=== PATIENT | male | born 2000 | race Caucasian/White ===

== ENCOUNTER 2023-05-24 12:45 | Emergency (ER) | payer OTHER ==
--- NOTE | 2023-05-24 13:15 | ED ---
Skin/Abscess/FB HPI - General Chief complaint: Skin/Abscess/Foreign Body Stated complaint: Right side neck pain-sent from dentist Time Seen by Provider: 05/24/23 12:52 Source: patient, RN notes reviewed Mode of arrival: ambulatory Limitations: no limitations - History of Present Illness Initial comments: This is a 22-year-old male who presents to the emergency department for right- sided neck swelling. Patient states that 3 days ago he was developing pain and swelling to the right side of his neck. He had dental pain as well, which he thought might be causing it due to a cracked molar. He followed up with his dentist today, however they were concerned about the swelling being in the neck and did not want to do any intervention until he was evaluated in the emergency department, as they were concerned about problems with his airway. The dentist told the patient that if they were to intervene with the swelling already there, it could cause airway compromise, and he needed the swelling to go down first. Denies any shortness of breath, but states that it is painful to speak and swallow. He is also having difficulty fully opening the mouth due to the pain. Denies any fevers/chills, coughing, or congestion. Also denies any history of similar symptoms in the past. His dentist did send in a prescription for Augmentin, Ibuprofen, and an oral rinse. Follow up appointment with his dentist is scheduled for 05/30/23. - Related Data Previous Rx's Medication Instructions Recorded HYDROcodone/APAP 5-325MG [[place] 1 tab PO Q6HR PRN 3 Days #12 tab 05/24/23 5-325] Allergies Allergy/AdvReac Type Severity Reaction Status Date / Time No Known Allergies Allergy Verified 05/24/23 12:51 Review of Systems ROS Statement: Those systems with pertinent positive or pertinent negative responses have been documented in the HPI. ROS Other: All systems not noted in ROS Statement are negative. Past Medical History Past Medical History: No Reported History History of Any Multi-Drug Resistant Organisms: None Reported Past Surgical History: Orthopedic Surgery Past Psychological History: No Psychological Hx Reported Smoking Status: Never smoker Past Alcohol Use History: Occasional Past Drug Use History: None Reported General Exam Limitations: no limitations General appearance: alert, in no apparent distress Head exam: Present: atraumatic, normocephalic, normal inspection ENT exam: Present: TM's normal bilaterally, normal external ear exam, other (No swelling to the floor of the mouth or elevation of the tongue. Cracked molar in the right lower jaw without significant dental caries.) Neck exam: Present: other (Tenderness and swelling to the right side of the neck consistent with lymphadenopathy) Respiratory exam: Present: normal lung sounds bilaterally. Absent: respiratory distress, wheezes, rales, rhonchi, stridor Cardiovascular Exam: Present: regular rate, normal rhythm, normal heart sounds. Absent: systolic murmur, diastolic murmur, rubs, gallop, clicks Neurological exam: Present: alert, oriented X3, CN II-XII intact Psychiatric exam: Present: normal affect, normal mood Course Vital Signs 05/24/23 05/24/23 05/24/23 12:48 16:00 17:26 Temperature 99.0 F 99.5 F 98.3 F Pulse Rate 77 69 78 Respiratory 16 18 16 Rate Blood Pressure 143/104 146/75 142/84 O2 Sat by Pulse 100 97 97 Oximetry Medical Decision Making - Medical Decision Making This is a 22-year-old male who presents to the emergency department for pain and swelling to the neck. Was pt. sent in by a medical professional or institution? @ -His dentist Did you speak to anyone other than the patient for history? @ -No Did you review nursing and triage notes? @ -Yes, and I agree, it is accurate with regards to the patient's symptoms. Were old charts reviewed? @ -No Differential Diagnosis? @ -Differential Neck Swelling: Allergic reaction, lymphadenopathy, abscess, cellulitis, tumor, this is not meant to be an all-inclusive list. EKG interpreted by me (3pts min.)? @ -Not obtained X-rays interpreted by me (1pt min.)? @ -Not obtained CT interpreted by me (1pt min.)? @ -Not obtained U/S interpreted by me (1pt. min.)? @ -Ultrasound of the soft tissue neck obtained. My interpretation identifies lymphadenopathy. What testing was considered but not performed? (CT, X-rays, U/S, labs)? Why? @ -None What meds were considered but not given? Why? @ -None Did you discuss the management of the patient with other professionals? @ -No Did you reconcile home meds? @ -No Was smoking cessation discussed for >3mins.? @ -No Was critical care preformed (if so, how long)? @ -No Were there social determinants of health that impacted care today? How? (Homelessness, low income, unemployed, alcoholism, drug addiction, transportation, low edu. Level, literacy, decrease access to med. care, [facility], rehab)? @ -No Was there de-escalation of care discussed even if they declined? (Discuss DNR or withdrawal of care, Hospice)? @ -No What co-morbidities impacted this encounter? (DM, HTN, Smoking, COPD, CAD, Cancer, CVA, Hep., AIDS, mental health diagnosis, sleep apnea, morbid obesity)? @ -None Was patient admitted / discharged? @ -Discharged. Lab work reveals an elevated CRP of 7.6 and was otherwise unremarkable. Lactic acid negative and there is no leukocytosis. Ultrasound of the neck obtained demonstrating clustered thickened and mildly enlarged lymph nodes, which is likely reactive. Patient has no elevation of the tongue or swelling to the floor of the mouth to suggest a Omar's angina. Symptoms likely related to dental infection causing reactive lymphadenopathy. Patient has pain with opening and closing mouth, but no shortness of breath or other evidence of airway compromise. His pain was well-controlled in the emergency department. Advise he take the ibuprofen and antibiotic as prescribed to help with the infection and reactive lymphadenopathy. Patient discharged home in stable condition and will follow-up with his dentist as scheduled. Undiagnosed new problem with uncertain prognosis? @ -None Drug Therapy requiring intensive monitoring for toxicity (Heparin, Nitro, Insulin, Cardizem)? @ -None Were any procedures done? @ -None Diagnosis/symptom? @ -Dental infection, lymphadenopathy Acute, or Chronic, or Acute on Chronic? @ -Acute Uncomplicated (without systemic symptoms) or Complicated (systemic symptoms)? @ -Uncomplicated Side effects of treatment? @ -None Exacerbation, Progression, or Severe Exacerbation] @ -Not applicable Poses a threat to life or bodily function? @ -No Return precautions reviewed in depth, the patient is instructed to return to the emergency department with any new, worsening, or concerning symptoms. Patient verbalized understanding. This case was discussed in detail with the attending ED physician, Dr. Mueller. Presentation, findings, and treatment plan discussed in detail as well. - Lab Data Result diagrams: 05/24/23 13:10 03/05/24 13:10 Lab Results 05/24/23 05/24/23 05/24/23 Range/Units 13:10 13:10 13:10 WBC 7.5 (3.8-10.6) k/uL RBC 4.92 (4.30-5.90) m/uL Hgb 15.7 (13.0-17.5) gm/dL Hct 45.6 (39.0-53.0) % MCV 92.6 (80.0-100.0) fL MCH 31.9 (25.0-35.0) pg MCHC 34.5 (31.0-37.0) g/dL RDW 12.0 (11.5-15.5) % Plt Count 171 (150-450) k/uL MPV 9.1 Neutrophils % 74 % Lymphocytes % 14 % Monocytes % 10 % Eosinophils % 1 % Basophils % 0 % Neutrophils # 5.6 (1.3-7.7) k/uL Lymphocytes # 1.0 (1.0-4.8) k/uL Monocytes # 0.7 (0-1.0) k/uL Eosinophils # 0.1 (0-0.7) k/uL Basophils # 0.0 (0-0.2) k/uL Sodium 139 (137-145) mmol/L Potassium 4.2 (3.5-5.1) mmol/L Chloride 106 (98-107) mmol/L Carbon Dioxide 21 L (22-30) mmol/L Anion Gap 12 mmol/L BUN 10 (9-20) mg/dL Creatinine 0.74 (0.66-1.25) mg/dL Est GFR (CKD-EPI)AfAm >90 (>60 ml/min/1.73 sqM) Est GFR (CKD-EPI)NonAf >90 (>60 ml/min/1.73 sqM) Glucose 88 (74-99) mg/dL Plasma Lactic Acid Billy 0.7 (0.7-2.0) mmol/L Calcium 9.6 (8.4-10.2) mg/dL Total Bilirubin 1.1 (0.2-1.3) mg/dL AST 35 (17-59) U/L ALT 28 (4-49) U/L Alkaline Phosphatase 91 (38-126) U/L C-Reactive Protein 7.6 H (<1.0) mg/dL Total Protein 7.8 (6.3-8.2) g/dL Albumin 5.0 (3.5-5.0) g/dL Amylase 47 (30-110) U/L Lipase 39 (23-300) U/L Influenza Type A (PCR) (Not Detectd) Influenza Type B (PCR) (Not Detectd) RSV (PCR) (Not Detectd) SARS-CoV-2 (PCR) (Not Detectd) Group A Strep (PCR) (Not Detectd) 05/24/23 05/24/23 Range/Units 13:25 13:25 WBC (3.8-10.6) k/uL RBC (4.30-5.90) m/uL Hgb (13.0-17.5) gm/dL Hct (39.0-53.0) % MCV (80.0-100.0) fL MCH (25.0-35.0) pg MCHC (31.0-37.0) g/dL RDW (11.5-15.5) % Plt Count (150-450) k/uL MPV Neutrophils % % Lymphocytes % % Monocytes % % Eosinophils % % Basophils % % Neutrophils # (1.3-7.7) k/uL Lymphocytes # (1.0-4.8) k/uL Monocytes # (0-1.0) k/uL Eosinophils # (0-0.7) k/uL Basophils # (0-0.2) k/uL Sodium (137-145) mmol/L Potassium (3.5-5.1) mmol/L Chloride (98-107) mmol/L Carbon Dioxide (22-30) mmol/L Anion Gap mmol/L BUN (9-20) mg/dL Creatinine (0.66-1.25) mg/dL Est GFR (CKD-EPI)AfAm (>60 ml/min/1.73 sqM) Est GFR (CKD-EPI)NonAf (>60 ml/min/1.73 sqM) Glucose (74-99) mg/dL Plasma Lactic Acid Billy (0.7-2.0) mmol/L Calcium (8.4-10.2) mg/dL Total Bilirubin (0.2-1.3) mg/dL AST (17-59) U/L ALT (4-49) U/L Alkaline Phosphatase (38-126) U/L C-Reactive Protein (<1.0) mg/dL Total Protein (6.3-8.2) g/dL Albumin (3.5-5.0) g/dL Amylase (30-110) U/L Lipase (23-300) U/L Influenza Type A (PCR) Not Detected (Not Detectd) Influenza Type B (PCR) Not Detected (Not Detectd) RSV (PCR) Not Detected (Not Detectd) SARS-CoV-2 (PCR) Not Detected (Not Detectd) Group A Strep (PCR) NOT DETECTED (Not Detectd) - Radiology Data Radiology results: report reviewed, image reviewed Disposition Clinical Impression: Dental infection, Lymphadenopathy Disposition: HOME SELF-CARE Instructions (If sedation given, give patient instructions): Dental Abscess (ED), Lymphadenopathy (ED) Additional Instructions: Return to the emergency department with any new, worsening, or concerning symptoms. Take the antibiotic as prescribed by your dentist. Alternate with ibuprofen and Tylenol, and try to continue taking the ibuprofen, even if it is not particularly painful, to help with the swelling and inflammation. Take the [place] sparingly when your pain is the most severe and be aware that it may make you drowsy. Follow-up with your dentist as scheduled. Prescriptions: HYDROcodone/APAP 5-325MG [[place] 5-325] 1 tab PO Q6HR PRN 3 Days #12 tab PRN Reason: Pain Is patient prescribed a controlled substance at d/c from ED?: Yes When asked, does pt state using other controlled substances?: No If prescribed controlled substance>3 days was MAPS reviewed?: Prescribed <3 Days Referrals: None,Stated [Primary Care Provider] - 1-2 days Time of Disposition: 16:46
[2023-05-24] MEDS: KETOROLAC 15 MG/ML 1 ML VIAL IVP STA ×2 (13:20→16:00)
[2023-05-24] MEDS: DEXAMETHASONE SOD PHOSPHATE 10 MG/ML 1 ML VIAL IVP STA (13:22)
[2023-05-24 13:37] LABS: Basophils % (A) 0 %; Eosinophils # (A) 0.1 k/uL (0-0.7); Eosinophils % (A) 1 %; HCT 45.6 % (39.0-53.0); HGB 15.7 gm/dL (13.0-17.5); Lymphocytes % (A) 14 %; MCH 31.9 pg (25.0-35.0); MCHC 34.5 g/dL (31.0-37.0); MCV 92.6 fL (80.0-100.0); Mean Platelet Volume 9.1; Monocytes # (A) 0.7 k/uL (0-1.0); Monocytes % (A) 10 %; Neutrophils # (A) 5.6 k/uL (1.3-7.7); Neutrophils % (A) 74 %; Platelet Count 171 k/uL (150-450); RBC 4.92 m/uL (4.30-5.90); WBC 7.5 k/uL (3.8-10.6)
[2023-05-24 13:49] LABS: ALT 28 U/L (4-49); AST 35 U/L (17-59); African American GFR (CKD) >90 (>60 ml/min/1.73 sqM); Alkaline Phosphatase 91 U/L (38-126); Amylase 47 U/L (30-110); Anion Gap 12 mmol/L; Blood Urea Nitrogen 10 mg/dL (9-20); C Reactive Protein 7.6 mg/dL (<1.0); Calcium 9.6 mg/dL (8.4-10.2); Carbon Dioxide 21 mmol/L (22-30); Chloride 106 mmol/L (98-107); Glucose 88 mg/dL (74-99); Lipase 39 U/L (23-300); Non-African American GFR(CKD) >90 (>60 ml/min/1.73 sqM); Potassium 4.2 mmol/L (3.5-5.1); Sodium 139 mmol/L (137-145); Total Bilirubin 1.1 mg/dL (0.2-1.3); Total Protein 7.8 g/dL (6.3-8.2)
--- NOTE | 2023-05-24 14:48 | US ---
EXAMINATION TYPE: US st tissue neck DATE OF EXAM: 05/24/2023 COMPARISON: NONE CLINICAL INDICATION: Male, 22 years old with history of Neck mass; Pt states pain and swelling to rig ht side of neck and submandibular area x 3 days TECHNIQUE: Scanning along the right neck and right submandibular region corresponding to the symptoma tic site. FINDINGS: [employer] notes: Chain of lymph nodes visualized right submandibular area where pt is having pain, largest 2 lymph n odes 1)= 1.5 x 0.8 x 0.7 cm with 0.5cm cortical thickness 2)= 1.6 x 0.7 x 0.8 cm with 0.3cm cortical thickness IMPRESSION: Clustered thickened and mildly enlarged lymph nodes at the site of patient's pain, likely reactive. L ymphadenitis is possible. Follow-up after treatment to ensure resolution. If a palpable abnormality p ersists or increases in size, the area can be rescanned.
[2023-05-24] MEDS: MORPHINE SULFATE 4 MG/ML SYRINGE IVP STA (16:04)
[2023-05-24] MEDS: ACETAMINOPHEN TAB 500 MG TAB PO STA (17:23)
[2023-05-24 17:41] VITALS: BP 142/84; PULSE 78; RESP 16; TEMP 98.3
== END 2023-05-24 17:26 | disposition home or self-care (01) ==
LOC: EC 12:45
DX: K04.7 Periapical abscess without sinus (principal); R59.1 Generalized enlarged lymph nodes; Z20.822 Contact with and (suspected) exposure to COVID-19
CPT/HCPCS: 36415; 87651; 80053; 82150; 83605; 83690; 85025; 86140; 87636; 76536; 99284; 96374; 96375 ×2; 96376; J2270; J1100; J1885

== ENCOUNTER 2023-05-26 08:45 | Emergency (ER) | payer OTHER ==
[2023-05-26 09:04] VITALS: RESP 18
[2023-05-26] MEDS: KETOROLAC 15 MG/ML 1 ML VIAL IVP STA (09:12)
--- NOTE | 2023-05-26 09:13 | ED ---
ENT HPI - General Chief complaint: ENT Stated complaint: R Facial Swelling, hx of Infection lymph node Time Seen by Provider: 05/26/23 08:48 Source: patient, RN notes reviewed Mode of arrival: ambulatory Limitations: no limitations - History of Present Illness Initial comments: This is a 22-year-old male who presents to the emergency department for right- sided face and neck swelling. Patient was evaluated here 2 days ago and diagnosed with reactive lymphadenopathy secondary to a dental infection. Lab work was unremarkable at that time. He has been on Augmentin and Ibuprofen without relief in symptoms. Believes that the pain and swelling are not getting any better. Denies any shortness of breath, but states that the pain does make it hard to swallow. Denies any fever/chills. He does note that his father has had similar problems in the past, and did not respond to Augmentin. - Related Data Home Medications Medication Instructions Recorded Confirmed Amoxic-Pot Clav 875-125Mg 1 tab PO BID 05/26/23 05/26/23 [Augmentin 875-125] Chlorhexidine Gluconate [Peridex] 15 ml PO BID 05/26/23 05/26/23 Ibuprofen [Motrin] 600 mg PO TID PRN 05/26/23 05/26/23 Previous Rx's Medication Instructions Recorded HYDROcodone/APAP 5-325MG [[place] 1 tab PO Q6HR PRN 3 Days #12 tab 05/24/23 5-325] Acet/Diph/Lido/Eiqd-Sbi-Hkl-Si 5 ml PO Q4-6H PRN #240 ml 05/26/23 [Tyl/Benadryl/Lido/Maalox] Moxifloxacin HCl [Avelox] 400 mg PO DAILY 10 Days #10 tab 05/26/23 Allergies Allergy/AdvReac Type Severity Reaction Status Date / Time No Known Allergies Allergy Verified 05/26/23 09:38 Review of Systems ROS Statement: Those systems with pertinent positive or pertinent negative responses have been documented in the HPI. ROS Other: All systems not noted in ROS Statement are negative. Past Medical History Past Medical History: No Reported History History of Any Multi-Drug Resistant Organisms: None Reported Past Surgical History: Orthopedic Surgery Past Psychological History: No Psychological Hx Reported Smoking Status: Never smoker Past Alcohol Use History: Occasional Past Drug Use History: None Reported General Exam Limitations: no limitations General appearance: alert, in no apparent distress ENT exam: Present: other (Swelling and tenderness to the right cheek. This does not cross the midline. No elevation of the tongue or swelling of the floor of the mouth.) Neck exam: Present: lymphadenopathy Respiratory exam: Present: normal lung sounds bilaterally. Absent: respiratory distress, wheezes, rales, rhonchi, stridor Cardiovascular Exam: Present: regular rate, normal rhythm, normal heart sounds. Absent: systolic murmur, diastolic murmur, rubs, gallop, clicks Neurological exam: Present: alert, oriented X3, CN II-XII intact Psychiatric exam: Present: normal affect, normal mood Course Vital Signs 05/26/23 05/26/23 05/26/23 08:46 12:00 14:04 Temperature 97.4 F L Pulse Rate 75 73 57 L Respiratory 18 18 18 Rate Blood Pressure 141/93 143/86 143/95 O2 Sat by Pulse 99 98 99 Oximetry 05/26/23 14:55 Temperature 97.6 F Pulse Rate 64 Respiratory 18 Rate Blood Pressure 140/76 O2 Sat by Pulse 98 Oximetry Medical Decision Making - Medical Decision Making This is a 22-year-old male who presents to the emergency department for right- sided face and neck swelling. Was pt. sent in by a medical professional or institution? @ -No Did you speak to anyone other than the patient for history? @ -No Did you review nursing and triage notes? @ -Yes, and I agree, it is accurate with regards to the patient's symptoms. Were old charts reviewed? @ -US of the head and neck from 05/24/23 demonstrating clustered thickened and mildly enlarged lymph nodes at the site of the patient's pain thought to be reactive. Lymphadenitis was also a possibility. Differential Diagnosis? @ -Differential Neck Pain/Swelling: Lymphadenopathy, abscess, cellulitis, this is not meant to be an all-inclusive list. EKG interpreted by me (3pts min.)? @ -Not obtained X-rays interpreted by me (1pt min.)? @ -Not obtained CT interpreted by me (1pt min.)? @ -CT scan of the soft tissue neck obtained. My interpretation identifies no evidence of abscess formation. U/S interpreted by me (1pt. min.)? @ -Not obtained What testing was considered but not performed? (CT, X-rays, U/S, labs)? Why? @ -None What meds were considered but not given? Why? @ -None Did you discuss the management of the patient with other professionals? @ -Dr. Parkinson, ENT, who advised that the swelling is outside of the airway and advised switching Augmentin to the Moxifloxacin and having him follow up with oral surgery. Did you reconcile home meds? @ -No Was smoking cessation discussed for >3mins.? @ -No Was critical care preformed (if so, how long)? @ -No Were there social determinants of health that impacted care today? How? (Homelessness, low income, unemployed, alcoholism, drug addiction, transportation, low edu. Level, literacy, decrease access to med. care, correction, rehab)? @ -No Was there de-escalation of care discussed even if they declined? (Discuss DNR or withdrawal of care, Hospice)? @ -No What co-morbidities impacted this encounter? (DM, HTN, Smoking, COPD, CAD, Cancer, CVA, Hep., AIDS, mental health diagnosis, sleep apnea, morbid obesity)? @ -None Was patient admitted / discharged? @ -Discharged. Lab work fairly unremarkable. There is no leukocytosis and CRP is decreased when compared with [address] scan of the soft tissue neck obtained. This demonstrates mild diffuse stranding along the right side of the neck of indeterminate significance. There is some mild thickening of the fascia along the right neck as well. No drainable fluid collection or abscess is identified. I spoke with the radiologist to clarify the location of the swelling. He believes that this may be along the platysma muscle, but it is not entirely clear. I then spoke with Dr. Parkinson, ENT. He advised that the swelling is outside of the airway and not concerning for airway compromise at this time. He recommended switching the Augmentin to moxifloxacin and having him follow-up with oral surgery. Prescription for moxifloxacin was provided. He was also given a prescription for magic mouthwash to help with the sore throat. Case management tried to get the patient an appointment with oral surgery, however due to his insurance, multiple offices would not accept the patient. We were able to get the patient an appointment for 05/29. He was given strict return parameters and otherwise discharged home in stable condition. Undiagnosed new problem with uncertain prognosis? @ -None Drug Therapy requiring intensive monitoring for toxicity (Heparin, Nitro, Insulin, Cardizem)? @ -None Were any procedures done? @ -None Diagnosis/symptom? @ -Dental infection Acute, or Chronic, or Acute on Chronic? @ -Acute Uncomplicated (without systemic symptoms) or Complicated (systemic symptoms)? @ -Uncomplicated Side effects of treatment? @ -None Exacerbation, Progression, or Severe Exacerbation] @ -Not applicable Poses a threat to life or bodily function? @ -Unlikely Return precautions reviewed in depth, the patient is instructed to return to the emergency department with any new, worsening, or concerning symptoms. Patient verbalized understanding. This case was discussed in detail with the attending ED physician, Dr. Grayson. Presentation, findings, and treatment plan discussed in detail as well. - Lab Data Result diagrams: 05/26/23 09:06 05/26/23 09:06 Lab Results 05/26/23 05/26/23 05/26/23 Range/Units 09:06 09:06 09:06 WBC 7.0 (3.8-10.6) k/uL RBC 4.66 (4.30-5.90) m/uL Hgb 14.8 (13.0-17.5) gm/dL Hct 43.4 (39.0-53.0) % MCV 93.2 (80.0-100.0) fL MCH 31.7 (25.0-35.0) pg MCHC 34.0 (31.0-37.0) g/dL RDW 12.2 (11.5-15.5) % Plt Count 163 (150-450) k/uL MPV 9.5 Neutrophils % 64 % Lymphocytes % 25 % Monocytes % 8 % Eosinophils % 1 % Basophils % 0 % Neutrophils # 4.5 (1.3-7.7) k/uL Lymphocytes # 1.7 (1.0-4.8) k/uL Monocytes # 0.6 (0-1.0) k/uL Eosinophils # 0.1 (0-0.7) k/uL Basophils # 0.0 (0-0.2) k/uL Sodium 141 (137-145) mmol/L Potassium 3.8 (3.5-5.1) mmol/L Chloride 108 H (98-107) mmol/L Carbon Dioxide 27 (22-30) mmol/L Anion Gap 6 mmol/L BUN 14 (9-20) mg/dL Creatinine 0.81 (0.66-1.25) mg/dL Est GFR (CKD-EPI)AfAm >90 (>60 ml/min/1.73 sqM) Est GFR (CKD-EPI)NonAf >90 (>60 ml/min/1.73 sqM) Glucose 86 (74-99) mg/dL Plasma Lactic Acid Billy 1.3 (0.7-2.0) mmol/L Calcium 8.9 (8.4-10.2) mg/dL Total Bilirubin 0.5 (0.2-1.3) mg/dL AST 26 (17-59) U/L ALT 25 (4-49) U/L Alkaline Phosphatase 77 (38-126) U/L C-Reactive Protein 4.8 H (<1.0) mg/dL Total Protein 6.9 (6.3-8.2) g/dL Albumin 4.3 (3.5-5.0) g/dL - Radiology Data Radiology results: report reviewed, image reviewed Disposition Clinical Impression: Dental infection Disposition: HOME SELF-CARE Instructions (If sedation given, give patient instructions): Dental Abscess (ED) Additional Instructions: Return to the emergency department with any new, worsening, or concerning symptoms. Stop taking the current antibiotic and begin taking the new antibiotic daily for 10 days. You can have the other medication prescribed every 4-6 hours to help with the sore throat as well. Continue alternating with ibuprofen and Tylenol. Also continue taking the [place]. [facility] can be reached at [phone] and are located at [address] [place] [id number]. Appointment on 05-30-2023 at 4:30pm. At appointment ask for online referral form to be completed and Xrays to be uploaded onto website also. [place] under referring doctors. [facility] can be reached at [phone] June at 2:15pm. Prescriptions: Moxifloxacin HCl [Avelox] 400 mg PO DAILY 10 Days #10 tab Acet/Diph/Lido/Prdo-Geh-Omn-Si [Tyl/Benadryl/Lido/Maalox] 5 ml PO Q4-6H PRN #240 ml PRN Reason: Sore Throat Is patient prescribed a controlled substance at d/c from ED?: No Referrals: None,Stated [Primary Care Provider] - 1-2 days Time of Disposition: 14:41
[2023-05-26] MEDS: MORPHINE SULFATE 2 MG/ML SYRINGE IVP STA ×2 (09:14→12:29)
[2023-05-26] MEDS: SODIUM CHLORIDE 0.9% 1,000 ML IV STA (09:16)
[2023-05-26 09:36] LABS: Basophils % (A) 0 %; Eosinophils # (A) 0.1 k/uL (0-0.7); Eosinophils % (A) 1 %; HCT 43.4 % (39.0-53.0); HGB 14.8 gm/dL (13.0-17.5); Lymphocytes # (A) 1.7 k/uL (1.0-4.8); Lymphocytes % (A) 25 %; MCH 31.7 pg (25.0-35.0); MCV 93.2 fL (80.0-100.0); Mean Platelet Volume 9.5; Monocytes # (A) 0.6 k/uL (0-1.0); Monocytes % (A) 8 %; Neutrophils # (A) 4.5 k/uL (1.3-7.7); Neutrophils % (A) 64 %; Platelet Count 163 k/uL (150-450); RBC 4.66 m/uL (4.30-5.90); RDW 12.2 % (11.5-15.5)
[2023-05-26 10:05] LABS: ALT 25 U/L (4-49); AST 26 U/L (17-59); African American GFR (CKD) >90 (>60 ml/min/1.73 sqM); Albumin 4.3 g/dL (3.5-5.0); Alkaline Phosphatase 77 U/L (38-126); Anion Gap 6 mmol/L; Blood Urea Nitrogen 14 mg/dL (9-20); C Reactive Protein 4.8 mg/dL (<1.0); Calcium 8.9 mg/dL (8.4-10.2); Carbon Dioxide 27 mmol/L (22-30); Chloride 108 mmol/L (98-107); Glucose 86 mg/dL (74-99); Non-African American GFR(CKD) >90 (>60 ml/min/1.73 sqM); Potassium 3.8 mmol/L (3.5-5.1); Sodium 141 mmol/L (137-145); Total Bilirubin 0.5 mg/dL (0.2-1.3); Total Protein 6.9 g/dL (6.3-8.2)
--- NOTE | 2023-05-26 11:26 | CT ---
EXAMINATION TYPE: CT soft tissue neck w con DATE OF EXAM: 05/26/2023 9:53 AM COMPARISON: Ultrasound on 05/24/2023. HISTORY: Right-sided swelling. CT DLP: 437.6 mGycm Automated exposure control for dose reduction was used. CONTRAST: CT scan of the neck is performed following with IV Contrast, patient injected with 100 mL of Isovue 3 00. Axial images are obtained, coronal and sagittal reformatted images are reviewed. FINDINGS: Airway: No gross abnormality seen. Parotid/submandibular glands: No gross abnormality seen. Carotid/Vascular Structures: No significant vascular abnormality. Osseous Structures: No significant bony abnormalities. Other: There appears to be some subcutaneous stranding along the right neck which is mild of indeterm inate significance. There is no drainable fluid collection or abscess. Infection would be a possibili ty. IMPRESSION: 1. Mild diffuse stranding seen along the right side of the neck of indeterminate significance. There is some mild thickening of the fascia along the right neck as well. This could be seen in the setting of infection. Clinical correlation is recommended and short-term follow-up and close monitoring luis mmended. 2. No definitive or significant adenopathy otherwise identified.
[2023-05-26] MEDS: HYDROmorphone 0.5 MG/0.5 ML SYRINGE IVP STA (14:29)
[2023-05-26 15:14] VITALS: BP 140/76; PULSE 64; TEMP 97.6
== END 2023-05-26 15:03 | disposition home or self-care (01) ==
LOC: EC 08:45
DX: K04.7 Periapical abscess without sinus (principal)
CPT/HCPCS: 36415; 80053; 83605; 85025; 86140; 70491; 99284; 96374; 96375 ×2; 96376; 96361 ×2; J2270; J1885; J1170; Q9967